=== PATIENT | female | born 1990 | race Hispanic/Latino ===

== ENCOUNTER 2017-11-25 22:24 | Emergency (ER) | payer BC ==
[2017-11-25 22:44] VITALS: BP 122/69; PULSE 81; RESP 18; TEMP 98; O2SAT 100
[2017-11-25] MEDS ORDERED: Naproxen 500 MG TAB PO STA (23:09)
--- NOTE | 2017-11-25 23:11 | ED PDOC ---
Lower Extremity Pain/Injury Time Seen by Provider: 11/25/17 23:09 Chief Complaint (Nursing): Lower Extremity Problem/Injury Chief Complaint (Provider): KNEE INJURY History Per: Patient (27 Y/O FEMALE HERE WITH RIGHT KNEE INJURY THAT OCCURRED WHEN SHE WAS PLAYING BASKETBALL AND TWISTED KNEE. STATES SHE HEARD A POP AND FELL AFTER. NOTES MODERATE KNEE PAIN AND DIFFICULTY BEARING WEIGHT ON KNEE.) Past Medical History Reviewed: Historical Data, Nursing Documentation, Vital Signs Vital Signs: Last Vital Signs Temp 98 F 11/25/17 22:41 Pulse 81 11/25/17 22:41 Resp 18 11/25/17 22:41 BP 122/69 11/25/17 22:41 Pulse Ox 100 11/25/17 22:41 - Family History Family History: States: No Known Family Hx - Home Medications Home Medications: Ambulatory Orders Medication Instructions Recorded Naproxen 375 mg PO Q8 PRN #21 tablet 11/25/17 - Allergies Allergies/Adverse Reactions: Allergies Allergy/AdvReac Type Severity Reaction Status Date / Time No Known Allergies Allergy Verified 11/25/17 22:41 Review of Systems ROS Statement: Except As Marked, All Systems Reviewed And Found Negative Musculoskeletal: Positive for: Other (KNEE PAIN/INJURY) Physical Exam - Reviewed Nursing Documentation Reviewed: Yes Vital Signs Reviewed: Yes - Physical Exam Appears: Positive for: Well, Non-toxic, No Acute Distress Head Exam: Positive for: ATRAUMATIC, NORMAL INSPECTION, NORMOCEPHALIC Skin: Positive for: Normal Color, Warm, DRY Eye Exam: Positive for: EOMI, Normal appearance, PERRL ENT: Positive for: Normal ENT Inspection Neck: Positive for: Normal, Painless ROM Cardiovascular/Chest: Positive for: Regular Rate, Rhythm Respiratory: Positive for: CNT, Normal Breath Sounds Gastrointestinal/Abdominal: Positive for: Normal Exam, Soft Back: Positive for: Normal Inspection Extremity: Positive for: Normal ROM, Swelling (RIGHT KNEE EFFUSION NOTED. ABLE TO FLEX AND EXTEND KNEE BUT WITH PAIN. NO TENDERNESS ELICITED ON EXAM.) Neurologic/Psych: Positive for: Alert, Oriented - ECG O2 Sat by Pulse Oximetry: 100 - Progress ED Course And Treament: IMPRESSION: Normal right knee x-rays. Thank you for allowing us to participate in the care of your patient. Dictated and Authenticated by: Brenden Salas MD NAPROXEN 500MG X 1 DOSE PLACED IN KNEE IMMOBILIZER AND CRUTCH INSTRUCTIONS Disposition - Clinical Impression Clinical Impression: Knee injury - Patient ED Disposition Is Patient to be Admitted: No - Disposition Referrals: Mehran Friend III, MD [Staff Provider] - Disposition: Routine/Home Disposition Time: 23:42 Condition: FAIR Prescriptions: Naproxen 375 mg PO Q8 PRN #21 tablet PRN Reason: Pain, Moderate (4-7) Instructions: Ligament Injuries in the Knee (DC) Forms: [facility] ED School/Work Excuse Print Language: JAPANESE
[2017-11-25] MEDS ORDERED: Naproxen 500 MG TAB PO ONE (23:23)
--- NOTE | 2017-11-26 14:47 | RAD ---
Date of service: 11/25/2017 PROCEDURE: Right Knee Radiographs. HISTORY: KNEE INJURY COMPARISON: None. FINDINGS: BONES: Normal. No fracture. JOINTS: Normal. No osteoarthritis. JOINT EFFUSION: None. OTHER FINDINGS: None. IMPRESSION: Normal radiographs of the right knee.
== END 2017-11-26 00:11 | disposition home or self-care (01) ==
LOC: H.ER 22:24
DX: S89.91XA Unspecified injury of right lower leg, initial encounter (principal); X50.1XXA Overexertion from prolonged static or awkward postures, initial encounter; Y93.67 Activity, basketball